=== PATIENT | male | born 1940 | race Caucasian/White ===

== ENCOUNTER 2017-03-27 13:36 | Observation (INO) | payer OTHER ==
--- NOTE | 2017-03-27 14:09 | CPEKG ---
Heart Rate: 68 RR Interval: 882 P-R Interval: 208 QRSD Interval: 74 QT Interval: 392 QTC Interval: 417 P [place]: 18 QRS [place]: -47 T Wave [place]: 84 EKG Severity - ABNORMAL ECG - EKG Impression: SINUS RHYTHM EKG Impression: PROBABLE INFERIOR INFARCT, OLD EKG Impression: CONSIDER ANTERIOR INFARCT EKG Impression: Agree with above Electronically Signed By: Kvng Chisholm 28-Mar-2017 09:56:07
--- NOTE | 2017-03-27 14:11 | EDPHY ---
H & P Stated Complaint: L arm tingling intermittently x 1 wk;has L axillary tingling today Time Seen by Provider: 03/27/17 14:09 HPI/ROS: CHIEF COMPLAINT: Left arm numbness/paresthesias, chest pain. HISTORY OF PRESENT ILLNESS: The patient is a 76-year-old male with a history of CVA who presents with intermittent left arm and hand numbness and paresthesias for the past week, worsening today. He admits an associated left-sided chest pain that he felt this morning during the concurrently with the numbness. He admits associated nausea that has resolved. He admits neck tightness that he says is not unusual for him. He denies alleviating or provoking factors. He denies weakness, right-sided symptoms, facial symptoms, or leg symptoms. No shortness of breath, fever, chills, chest pain, shortness of breath, palpitations, vomiting, diarrhea, urinary complaints, headache, lightheadedness. He is anticoagulated on Coumadin. No recent falls. REVIEW OF SYSTEMS: Aside from elements discussed in the HPI, a comprehensive 10-point review of systems was reviewed and is negative. PAST MEDICAL HISTORY: CVA, hypertension, hypercholesterolemia. SOCIAL HISTORY: , nonsmoker, no alcohol use. VITAL SIGNS: Reviewed by me GENERAL: Well-developed, well-nourished, resting comfortably in no respiratory distress. HEENT: Atraumatic. Eyes: No icterus, no injection. Mouth: moist mucous membranes. No erythema or lesions. Neck: supple with no adenopathy. LUNGS: Clear to auscultation bilaterally, no wheezes, rhonchi or rales. CARDIAC: Regular rate and rhythm, no rubs, murmurs or gallops. No carotid bruits. ABDOMEN: Soft, nontender, nondistended, bowel sounds normal. BACK: No CVA tenderness. EXTREMITIES: No trauma. No edema. Range of motion is normal throughout. No tenderness, swelling, or adenopathy noted in the left axilla. NEURO: Alert and oriented, cranial nerves 2-12 are intact. Motor strength 5/5 in all extremities including the left upper extremity. Sensation is intact to light touch in the left upper extremity. SKIN: Warm and dry, no rash. PSYCHIATRIC: Normal mentation, no agitation. Portions of this note were transcribed by a certified ophthalmic medical technician. I personally performed a history, physical exam, medical decision making, and confirmed accuracy of information the transcribed note. Source: Patient Exam Limitations: No limitations - Personal History Current Tetanus Diphtheria and Acellular Pertussis (TDAP): Yes - Medical/Surgical History Hx Asthma: No Hx Chronic Respiratory Disease: No Hx Diabetes: No Hx Cardiac Disease: No Hx Renal Disease: No Hx Cirrhosis: No Hx Alcoholism: No Hx HIV/AIDS: No Hx Splenectomy or Spleen Trauma: No Other PMH: CVA, HTN, basal cell carcinoma (skin of neck and head) - Social History Smoking Status: Former smoker Constitutional: Initial Vital Signs Temperature (C) 37 C 03/27/17 13:40 Heart Rate 60 03/27/17 13:40 Respiratory Rate 18 03/27/17 13:40 Blood Pressure 134/101 H 03/27/17 13:40 O2 Sat (%) 94 03/27/17 13:40 O2 Delivery Mode Room Air O2 (L/minute) 2 Allergies/Adverse Reactions: No Known Allergies Allergy (Verified 03/27/17 13:41) Home Medications: Medication Instructions Recorded Amoxapine 50 mg PO HS 08/23/14 Irbesartan [Avapro 75 mg (*)] 75 mg PO DAILY 08/23/14 Atorvastatin Calcium [Lipitor 20 20 mg PO HS 03/27/17 mg (*)] Levothyroxine [Synthroid 50 mcg 50 mcg PO DAILY06 03/27/17 (*)] Warfarin Sodium 5 mg PO DAILY@18 03/27/17 Medical Decision Making - Diagnostics EKG Interpretation: 12-LEAD EKG: Please see the full report in [facility]. My interpretation: Normal sinus rhythm, multiple PVCs. No acute ischemic changes. Deep QS intervals inferiorly. Imaging Results: CT head: Impression: 1. Mild atrophy. 2. No acute hemorrhage, hydrocephalus, or mass effect. 3. Cerebrovascular atherosclerosis. 4. No definite acute infarct. 5. Moderate microvascular ischemic gliosis. 6. Old infarct in the right middle cerebellar peduncle/right cerebellar hemisphere region. 7.Consider MRI of the brain without and with contrast enhancement, if there is continued clinical concern. Findings and recommendations discussed with Emergency Department physician, Josefina Alegria MD at 15:26 hour, 03/27/2017. Final report concurs with initial preliminary interpretation. Dictated By: Wolf Choudhary Imaging: Discussed imaging studies w/ harvest worker field crop Radiologist ED Course/Re-evaluation: 76-year-old male with a previous CVA presents with intermittent left arm numbness and an episode of chest pain and nausea this morning. He is neurologically intact on exam. I am concerned for a cardiac process in this patient. I think a neurological process is possible but less likely. An IV was established and labs ordered. EKG ordered. Chest x-ray ordered. 1534: Head CT results conveyed to me negative for intracranial bleed by Dr. Choudhary, radiology. X-ray chest was obtained. I viewed the images myself on the PACS system. My interpretation of the images is: bronchitis/airways disease. The radiologist interpretation is pending at this time. I discussed the x-ray findings with the patient. Long discussion held with the patient and his . We discussed angina, anginal equivalents, possibility that the patient's intermittent tingling may be related to a cardiac issue, possibility of TIA or stroke, and my recommendation for admission to the hospital. Possibility of a vascular etiology was also entertained. Patient and his in agreement. 1627: Consulted with Dr. Pinto, hospitalist. He accepts admission. Dr. Wil Pinto requested a MRI of the brain as well as an MRI of the cervical spine be obtained. These were ordered. Please see the radiology reports for the readings and the findings. Differential Diagnosis: Differential diagnoses for the patient's symptom complex was considered including but not limited to paresthesias, electrolyte abnormalities, radiculopathy, anginal equivalent, stroke, TIA, vasculitis, anxiety.. Consult/Admit Bed Type: Dr. Wil Pinto, U - Data Points Laboratory Results: Laboratory Results 03/27/17 14:20 03/27/17 14:20 Medications Given: Discontinued Medications Atorvastatin Calcium (Lipitor) 20 mg PO HS [facility] Stop: 09/23/17 20:59 Last Admin: 03/27/17 21:07 Dose: 20 mg Irbesartan (Avapro) 75 mg PO DAILY [facility] Stop: 09/24/17 08:59 Last Admin: 03/28/17 12:11 Dose: 75 mg Levothyroxine Sodium (Synthroid) 50 mcg PO DAILY06 J[facility] Stop: 09/24/17 05:59 Last Admin: 03/28/17 06:37 Dose: 50 mcg Miscellaneous Medication (Amoxapine [Amoxapine]) 50 mg PO [facility] Stop: 09/23/17 20:59 Last Admin: 03/27/17 21:07 Dose: Not Given Departure - Departure Disposition: [facility] Acute Clinical Impression: Left arm numbness Chest pain Qualifiers: Chest pain type: unspecified Qualified Code(s): R07.9 - Chest pain, unspecified Condition: Good Report Scribed for: Josefina Alegria Report Scribed by: Anthony Pedraza Date of Report: 03/27/17 Time of Report: 14:19
[2017-03-27 14:25] LABS: % IMMATURE GRANULYOCYTES 0.5 % (0.0-1.1); ABSOLUTE IMMATURE GRANULOCYTES 0.04 10^3/uL (0.00-0.10); ADD DIFF? NO; ADD MORPH? NO; ADD SCAN? NO; ATYPICAL LYMPHOCYTE FLAG 10 (0-99); FRAGMENT RBC FLAG 0 (0-99); HEMATOCRIT 53.8 % (40.0-51.0); HEMOGLOBIN 17.8 g/dL (13.7-17.5); LEFT SHIFT FLG 0 (0-99); LIPEMIA HEMOLYSIS FLAG 80 (0-99); MEAN CELL HEMOGLOBIN 31.2 pg (27.9-34.1); MEAN CELL HEMOGLOBIN CONCENTR. 33.1 g/dL (32.4-36.7); MEAN CELL VOLUME 94.4 fL (81.5-99.8); MEAN PLATELET VOLUME 10.5 fL (8.7-11.7); PLATELET CLUMPS FLAG 0 (0-99); PLATELET COUNT 146 10^3/uL (150-400); RED CELL DISTRIBUTION WIDTH 12.3 % (11.5-15.2)
[2017-03-27 14:33] LABS: ANION GAP 13 mEq/L (8-16); CARBON DIOXIDE 25 mEq/l (22-31); CHLORIDE 105 mEq/L (97-110); CREATININE 1.2 mg/dL (0.7-1.3); GLOMERULAR FILTRATION RATE 59; GLUCOSE 104 mg/dL (70-100); SODIUM 143 mEq/L (134-144)
[2017-03-27 14:42] LABS: INR 3.23 (0.83-1.16); PROTIME(PATIENT) 33.5 SEC (12.0-15.0)
[2017-03-27 14:45] LABS: TROPONIN I < 0.012 ng/mL (0-0.034)
[2017-03-27] MEDS ORDERED: LORazepam 2 MG/ML INJ ONE (16:23)
[2017-03-27] MEDS ORDERED: ONDANSETRON DISINTEGRATING 4 MG TAB PO PRN (18:29)
[2017-03-27] MEDS ORDERED: ACETAMINOPHEN 325 MG TAB PO PRN (18:29)
[2017-03-27] MEDS ORDERED: ONDANSETRON 4 MG/2 ML VIAL IVP PRN (18:29)
[2017-03-27] MEDS ORDERED: GADOBUTROL 10 ML VIAL IVP ONE (18:30)
[2017-03-27] MEDS ORDERED: AMOXAPINE 50 MG PO SCH (21:00)
[2017-03-27] MEDS ORDERED: ATORVASTATIN CALCIUM 20 MG TAB PO SCH (21:00)
--- NOTE | 2017-03-27 23:02 | PDGENHP ---
History and Physical - Chief Complaint acute paresthesias - History of Present Illness primary care provider: Dr. Marquez HPI: 76-year-old male presenting with acute paresthesia characterized as pins and needles tingling, located in his left upper extremity with some associated tightness aching located in his left chest. Onset of symptoms was over the past several weeks and duration has been intermittent. It seems escalated over the past 48 hours. Reports that he is normally very physically active and several days prior to this presentation he engage in a 40 minutes cardiovascular workout in which he experienced none of the aforementioned symptoms. Does not note any particular time of day when the symptoms are more significant and he does not have any particular overhead exercises or movements that seem to exacerbate them. He does note occasional minor posterior neck discomfort which is generally alleviated by stretching. He otherwise takes all of his home medications he reports that prior to his onset of symptoms he had otherwise been feeling well. He denies any chest trauma but does endorse that he does a significant number of overhead weight lifting exercises. History Information - Allergies/Home Medication List Allergies/Adverse Reactions: No Known Allergies Allergy (Verified 03/27/17 13:41) Home Medications: Amoxapine 50 mg PO HS 08/23/14 [Last Taken 03/26/17] Irbesartan [Avapro 75 mg (*)] 75 mg PO DAILY 08/23/14 [Last Taken 03/27/17] Atorvastatin Calcium [Lipitor 20 mg (*)] 20 mg PO HS 03/27/17 [Last Taken ] Levothyroxine [Synthroid 50 mcg (*)] 50 mcg PO DAILY06 03/27/17 [Last Taken ] Warfarin Sodium 5 mg PO DAILY@18 03/27/17 [Last Taken 03/26/17] I have personally reviewed and updated: family history, medical history, social history, surgical history - Past Medical History CVA ( Right cerebellum, no residual deficits), hypertension, hyperlipidemia - Surgical History Reports: no pertinent surgical hx - Family History Additional family history: father with myocardial infarction in his left main coronary artery at age 58 - Social History Smoking Status: Former smoker Alcohol Use: Occasionally Drug Use: None Additional social history: patient is very physically active engages in cardiovascular exercise on a weekly basis Review of Systems ROS: 10pt was reviewed & negative except for what was stated in HPI & below Cardiac: Reports: chest pain Neurological: Reports: paresthesia Physical Exam Temp Pulse Resp BP Pulse Ox 36.7 C 83 16 151/93 H 94 03/27/17 20:27 03/27/17 20:27 03/27/17 20:27 03/27/17 20:27 03/27/17 20:27 O2 (L/minute) 2 Constitutional: no apparent distress, appears nourished, not in pain, No uncomfortable Eyes: PERRL, anicteric sclera, EOMI Ears, Nose, Mouth, Throat: moist mucous membranes, hearing normal, ears appear normal, no oral mucosal ulcers Cardiovascular: systolic murmur ( 2/6 systolic murmur at the sternum and apex), other ( significant ectopy), No tachycardia, No edema Respiratory: no respiratory distress, no rales or rhonchi, clear to auscultation Gastrointestinal: normoactive bowel sounds, soft, non-tender abdomen, no palpable masses Skin: warm, normal color, no rashes or abrasions, no fluctuance, no induration, No mottled Musculoskeletal: other ( no tenderness to palpation over the left pectoralis muscle, full range of motion of the left shoulder without any pain elicited, no tenderness to palpation over the left subacromial clavicular joint) Neurologic: AAOx3, CN II-XII Intact, other ( mild subjective paresthesia radial aspect of the left forearm), No weakness ( motor strength 5/5 bilateral upper extremities) Psychiatric: interacting appropriately, not anxious, not encephalopathic, thought process linear Lab Data & Imaging Review 03/27/17 14:20 03/27/17 14:20 WBC 7.75 10^3/uL (3.80-9.50) 03/27/17 14:20 RBC 5.70 10^6/uL (4.40-6.38) 03/27/17 14:20 Hgb 17.8 g/dL (13.7-17.5) H 03/27/17 14:20 Hct 53.8 % (40.0-51.0) H 03/27/17 14:20 MCV 94.4 fL (81.5-99.8) 03/27/17 14:20 MCH 31.2 pg (27.9-34.1) 03/27/17 14:20 MCHC 33.1 g/dL (32.4-36.7) 03/27/17 14:20 RDW 12.3 % (11.5-15.2) 03/27/17 14:20 Plt Count 146 10^3/uL (150-400) L 03/27/17 14:20 MPV 10.5 fL (8.7-11.7) 03/27/17 14:20 Neut % (Auto) 71.6 % (39.3-74.2) 03/27/17 14:20 Lymph % (Auto) 18.8 % (15.0-45.0) 03/27/17 14:20 [place] % (Auto) 8.4 % (4.5-13.0) 03/27/17 14:20 Eos % (Auto) 0.4 % (0.6-7.6) L 03/27/17 14:20 Baso % (Auto) 0.3 % (0.3-1.7) 03/27/17 14:20 Nucleat RBC Rel Count 0.0 % (0.0-0.2) 03/27/17 14:20 Absolute Neuts (auto) 5.55 10^3/uL (1.70-6.50) 03/27/17 14:20 Absolute Lymphs (auto) 1.46 10^3/uL (1.00-3.00) 03/27/17 14:20 Absolute Monos (auto) 0.65 10^3/uL (0.30-0.80) 03/27/17 14:20 Absolute Eos (auto) 0.03 10^3/uL (0.03-0.40) 03/27/17 14:20 Absolute Basos (auto) 0.02 10^3/uL (0.02-0.10) 03/27/17 14:20 Absolute Nucleated RBC 0.00 10^3/uL (0-0.01) 03/27/17 14:20 Immature Gran % 0.5 % (0.0-1.1) 03/27/17 14:20 Immature Gran # 0.04 10^3/uL (0.00-0.10) 03/27/17 14: PT 33.5 SEC (12.0-15.0) H 03/27/17 14:20 INR 3.23 (0.83-1.16) H 03/27/17 14:20 Sodium 143 mEq/L (134-144) 03/27/17 14:20 Potassium 4.0 mEq/L (3.5-5.2) 03/27/17 14:20 Chloride 105 mEq/L (97-110) 03/27/17 14:20 Carbon Dioxide 25 mEq/l (22-31) 03/27/17 14:20 Anion Gap 13 mEq/L (8-16) 03/27/17 14:20 BUN 16 mg/dL (7-23) 03/27/17 14:20 Creatinine 1.2 mg/dL (0.7-1.3) 03/27/17 14:20 Estimated GFR 59 03/27/17 14:20 Glucose 104 mg/dL (70-100) H 03/27/17 14:20 Calcium 9.0 mg/dL (8.5-10.4) 03/27/17 14:20 Troponin I < 0.012 ng/mL (0-0.034) 03/27/17 22:21 Visualized and Interpreted Chest x-ray results: Yes Chest X-Ray results: other ( mild peribronchial thickening) Visualized and Interpreted EKG results: Yes EKG Interpretation: Positive for: other ( sinus mechanism with significant PVCs and Q-wave inferiorly with poor R-wave progression in leads V2 through V3) Assessment & Plan Assessment: 76-year-old male presents with acute chest pain and left upper extremity paresthesias Plan: 1. Chest pain acute, new problem this provider, further workup indicated. Potential etiologies include musculoskeletal cause with his significant level of physical activity versus unstable angina versus neuropathic pain from his cervical neural foramina stenosis. - given his cardiovascular risk factors, further cardiac risk stratification is indicated - treadmill nuclear tomorrow given his abnormal baseline EKG -monitor on telemetry overnight, cycle cardiac enzymes - hold on aspirin given that he is currently systemically anticoagulated, hold on beta-marylou given that his heart rate is currently 60, hold on sublingual nitroglycerin as he is currently chest pain-free -if cardiac stress test is negative, would discuss muscular etiology with the patient including trial of nonsteroidal anti-inflammatory medications and additional stretching 2. Paresthesias. Acute, new problem this provider, further workup indicated. Potential etiologies include musculoskeletal cause versus neural foraminal stenosis MRI versus anginal symptoms -MRI of the brain demonstrates no additional CVA -MRI of the cervical spine demonstrates some bilateral moderate to severe foraminal stenosis which could account for his symptoms but further cardiovascular workup as outlined above should be performed prior to attributing them to this -trial of gabapentin may be of use if above workup is negative 3. Hypertension. Continue home medications 4. History of CVA. Continue Coumadin, monitor daily INR -reviewed outside records including 08/23/2014 discharge summary by Judith Lind , reporting the patient has experienced bleeding complications in the past including epistaxis requiring rhino rockets, monitor for any signs of bleeding while he is supratherapeutic on his INR Diet. Cardiac, NPO after midnight for stress test Prophylaxis. High risk patient, currently anticoagulated Code. Full Disposition. Anticipated discharge is 03/28/2017, pending further workup as outlined above. I have discussed patient's presentation with Dr. Josefina Alegria, we both agree the patient warrants urgent cardiovascular risk assessment as outlined above.
[2017-03-28 05:14] LABS: INR 3.44 (0.83-1.16); PROTIME(PATIENT) 35.2 SEC (12.0-15.0)
[2017-03-28 05:15] LABS: ANION GAP 10 mEq/L (8-16); CALCIUM 8.9 mg/dL (8.5-10.4); CARBON DIOXIDE 27 mEq/l (22-31); CHLORIDE 106 mEq/L (97-110); CREATININE 1.2 mg/dL (0.7-1.3); GLOMERULAR FILTRATION RATE 59; GLUCOSE 84 mg/dL (70-100); MAGNESIUM 2.4 mg/dL (1.6-2.3); POTASSIUM 4.2 mEq/L (3.5-5.2); SODIUM 143 mEq/L (134-144)
[2017-03-28 05:24] LABS: TROPONIN I < 0.012 ng/mL (0-0.034)
[2017-03-28] MEDS ORDERED: LEVOTHYROXINE 50 MCG TAB PO SCH (06:00)
[2017-03-28 08:27] VITALS: BP 144/88; PULSE 82; RESP 20; TEMP 98.1; O2SAT 92
[2017-03-28] MEDS ORDERED: IRBESARTAN 75 MG TAB PO SCH (09:00)
--- NOTE | 2017-03-28 13:59 | ECHO ---
[id number] + + [address] : : [place] [address] : : [phone] + + Adult Echocardiographic Report + -------+ :Name: PENNY MURRY MStudy Date: 03/28/2017 01:10 PM : : Hospital Admission Number: [id number] Locati on: 219: :: 1940 Gender: Male Height: 70 in : :Age: 76 yrs Race: WH Weight: 185 lb : :Reason For Study: Eval Valves : : BSA: 2.0 meter s2 : :History: Murmur : + -------+ MMode/2D Measurements \T\ Calculations IVSd: 1.0 cm LVIDd: 4.2 cm FS: 39.6 % Ao root diam: 4.1 cm LVPWd: 1.2 cm LVIDs: 2.5 cm EDV(Teich): 78.7 ml ACS: 0.63 cm ESV(Teich): 23.2 ml EF(Teich): 70.5 % LVOT diam: 2.2 cm LVOT area: 3.8 cm2 Normal Measurement Values: + + :LVIDd (3.5-5.7cm) IVSd (0.6-1.1cm) LVPWd (0.6-1.1cm) Aortic Root (2.0-3.7cm)Left Atrium (1.5-4.0cm): :LV Vol(d) (76-115ml) LV Vol(s) (29-48ml) Ejec Fraction (50-65%)PV Kip (0.6- 1.2m/s) TV Kip (0.4-1.0m/s) : :MV E Kip (0.8-1.0m/s)MV A Kip (0.3-1.0m/s)LVOT Kip (0.7-1.2m/s) Asc Ao Kip ( 0.9-1.8m/s) : + + Doppler Measurements \T\ Calculations MV E max kip: Ao V2 max: LV V1 mean PG: SV(LVOT): 65.6 cm/sec 371.0 cm/sec 2.3 mmHg 85.3 ml MV A max kip: Ao max P.1 mmHgLV V1 mean: 111.6 cm/sec Ao mean P.0 cm/sec MV E/A: 0.59 32.6 mmHg LV V1 VTI: 22.2 cm Ao V2 mean: 258.8 cm/sec Ao V2 VTI: 76.6 cm KADEN(I,D): 1.1 cm2 PA V2 max: 120.8 cm/sec PA max P.8 mmHg Left Ventricle The left ventricle is normal in size. There is normal left ventricular wall thickness. The left ventricular ejection fraction is normal. There is Doppler evidence for diastolic dysfunction. Ejection Fraction = 70%. Ectopy noted during exam. The left ventricular wall motion is normal. Right Ventricle The right ventricle is normal in size and function. Atria The left atrial size is normal. Right atrial size is normal. Mitral Valve The mitral valve is normal in structure and function. There is no evidence of mitral valve prolapse. There is no mitral valve stenosis. There is no mitral regurgitation noted. Tricuspid Valve Normal tricuspid valve. No tricuspid regurgitation. Aortic Valve There is moderate to severe aortic valve calcification. A bicuspid aortic valve cannot be excluded. Moderate valvular aortic stenosis. There is no aortic insufficiency. Pulmonic Valve The pulmonic valve is normal in structure and function. Great Vessels Moderately dilated ascending aorta. Ascending aorta is 4.8 cm. Pericardium/Pleural There is a fat pad seen. Conclusion A complete two-dimensional transthoracic echocardiogram was performed (2D, M-mode, Doppler and color flow Doppler). The left ventricular ejection fraction is normal. There is Doppler evidence for diastolic dysfunction. Ejection Fraction = 70%. The left ventricular wall motion is normal. Ectopy noted during exam The mitral valve is normal in structure and function. There is moderate to severe aortic valve calcification. A bicuspid aortic valve cannot be excluded. Moderate valvular aortic stenosis. Moderately dilated ascending aorta. Ascending aorta is 4.8 cm No prior echo Final Reading Physician: Dr Norma Snell electronically signed on 03/28/2017 01:58 PM Ordering Physician: [place] Performed By: Fortino Ramirez, CS
--- NOTE | 2017-03-28 15:06 | HOSPPROG ---
Hospitalist Progress Note Assessment/Plan: 76 yo M with hx of CVA pw LUE paresthesias and chest pain # chest pain: nuc treadmill performed today and notable for frequent PVCs but otherwise negative for ischemia # valvular heart disease: noted to have calcified aortic valve with moderate aortic stenosis as well. Cardiology to evaluate and may want to have IDA and cath prior to dc. They plan to discuss with patient. 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 Patient new to my care. Old records reviewed and summarized as above. Subjective: no significant overnight events, patient notes he is feeling well today Objective: Vital Signs Temp Pulse Resp BP Pulse Ox 36.7 C 82 20 144/88 H 92 03/28/17 08:26 03/28/17 08:26 03/28/17 08:26 03/28/17 08:26 03/28/17 08:26 Laboratory Results 03/28/17 04:17 03/27/17 03/28/17 03/29/17 05:59 05:59 05:59 Intake Total 450 Balance 450 PT 35.2 SEC (12.0-15.0) H 03/28/17 04:17 INR 3.44 (0.83-1.16) H 03/28/17 04:17 awake alert nad anicteric op clear rrr systolic murmur cta b soft nt nd no cce warm dry well perfused oriented appropriate - Time Spent With Patient Time Spent with Patient: greater than 35 minutes Time Spent with Patient: Greater than 35 minutes spent on this patients care, greater than 50% of time spent counseling, educating, and coordinating care regarding the above mentioned plan. ICD10 Worksheet Patient Problems: Problems Problem Status Onset Nosebleed Acute CVA (cerebral infarction) Acute A-fib Acute Chest pain Acute Left arm numbness Acute
--- NOTE | 2017-03-28 15:12 | PDDCSUM ---
Discharge Summary Discharge Summary: Dates of service 03/27-03/28/17 Discharge dx: # chest pain # valvular heart disease/mod # frequent pvcs # paresthesias # htn # h/o cva consultations: cardiology Procedures performed: nuc stress test, echo Hospital course by problem: 76 yo M with hx of CVA pw LUE paresthesias and chest pain # chest pain: nuc treadmill performed today and notable for frequent PVCs but otherwise negative for ischemia # valvular heart disease: noted to have calcified aortic valve with moderate aortic stenosis as well. Plan to f/u as an OP for likely IDA/cath # paresthesias: has had w/u including mri brain/mri c spine with notable moderate to severe bilateral foraminal stenosis at c4-c5 with degenerative disc disease, likely contributing, would have patient f/u with neurosurgery as an OP # htn: continue current medications # h/o cva # dispo: dc home > 35 minutes spent in dc more than half in coordination of care as well as discussion with patient and regarding f/u care plan
[2017-03-28 17:07] LABS: CHOLESTEROL 115 mg/dL (140-220); CHOLESTEROL/HDL RATIO 3.97 RATIO (1.00-4.97); HIGH DENSITY LIPOPROTEIN 29 mg/dL (40-65); LDL/HDL RATIO 1.83 RATIO (1.00-3.64); LOW DENSITY LIPOPROTEIN 53 mg/dL (80-100); NON-HIGH DENSITY LIPOPROTEIN 86 mg/dL (90-129); TRIGLYCERIDE 167 mg/dL (40-150); VERY LOW DENSITY LIPOPROTEINS 33 mg/dL (8-25)
[2017-03-28] MEDS ORDERED: WARFARIN SODIUM 5 MG TAB PO SCH (18:00)
--- NOTE | 2017-03-28 21:41 | CPR ---
[f rep st] NONINVASIVE CARDIAC PROCEDURE REPORT PROCEDURE PERFORMED: Exercise treadmill MPI study. INDICATION FOR STRESS TESTING: Chest pressure, abnormal electrocardiogram. PRE: After obtaining informed consent, the patient was placed on 12-lead electrocardiogram. Initia l EKG shows sinus rhythm, leftward axis, poor R-wave progression in anterior leads. Occasional barber ature atrial contraction, frequent occasional premature ventricular contraction. Initial blood pres sure 130/70. Patient denies any chest pain, shortness of breath, arm pain, or symptoms suggestive o f ischemia. STRESS: The patient was placed on exercise treadmill, following standard [place] protocol with the fo llowing findings: 1. Patient exercised for 6 minutes and 30 seconds. 2. 7.1 METs. 3. He obtained a heart rate of 126 beats per minute, which was 88% of MPHR. 4. Patient had no chest pain or symptoms suggestive of ischemia throughout testing. 5. Patient had no significant ST shifts at peak exercise suggestive of ischemia. 6. During stress testing, patient was noted to have occasional PACs, frequent PVCs with occasional couplets, and one 4-beat run of nonsustained ventricular tachycardia, he was asymptomatic. 7. SpO2 remained greater than 90% throughout testing. 8. BP variation: Rest 130/70, stress 166/70. 9. Test was stopped due to maximum effort. 10. Vences treadmill score of 6, placing patient at low cardiovascular risk. RECOVERY: Patient recovered for 5 minutes, heart rate returned back to normal, patient continues to have occasional PACs and occasional to frequent PVCs, no other malignant arrhythmias or pauses note d throughout recovery. IMPRESSION: A 76-year-old male admitted to the hospital for left upper arm and chest pressure, eval uated for cardiac ischemia. No significant ST shifts at peak exercise suggestive of ischemia, but p atient was noted to have frequent premature ventricular contractions during stress with occasional c ouplets, and one 4-beat run of nonsustained ventricular tachycardia. The patient was asymptomatic. Also noted pre, patient with a 2/6 to 3/6 systolic murmur noted in the right upper chest. Would re commend echocardiogram for further evaluation. The patient's vital signs are stable. He is being t aken down to Nuclear Medicine for post MPI imaging. /[id number]/MODL
--- NOTE | 2017-03-28 22:51 | GCON ---
[f rep st] CONSULTATION CARDIOLOGY CONSULTATION REASON FOR CONSULTATION: Premature ventricular contractions, episodes of chest pressure, moderate a ortic stenosis, and dilated ascending aorta. HISTORY OF PRESENT ILLNESS: The patient is a 76-year-old male, with previous medical history that i ncludes CVA in 1990, hypertension, and hypercholesteremia. He reports yesterday having intermittent left arm and hand numbness, and paresthesias in his left upper extremity with association of tightn ess and aching located in his left chest. He reports this has been going on for multiple weeks. He does report that he has been very active. He works out on a routine basis with exercising on a katerine admill, up to 40 minutes in the last week, with no symptoms. He denies any palpitations, lightheade dness, orthopnea, PND, edema, weight gain, near-syncope, or syncopal events. He denies any new symp toms suggestive of TIA or CVA. He reported last evening, the symptoms had worsened and came to [facility] emergency department for further evaluation. Upon arrival, he did have an electrocardiogram done showing sinus rhythm, with noted Q-waves in the inferior leads, poor R-wave progression, and occasional premature ventricular complexes. He did und ergo a head CT while in the emergency department which showed mild atrophy, but no acute hemorrhage, hydrocephalus or mass effect. It was noted that he did have cerebrovascular arthrosclerosis. He a lso had a brain MRI done yesterday showing old infarction of the right cerebral hemisphere and right side of the lower luh. No acute infarct, hemorrhage, hydrocephalus, mass effect or herniation. C ervical spine MRI was also done showing [id number]-elknkmdz degenerative disk disease with no cord comp ression. His initial troponin was less than 0.012. He had been seen by Dr. Pinto of hospital services, who felt due to his multiple cardiac risk facto rs, that he should be further evaluated. He was sent to the TCU for overnight observation, in which he remained on telemetry. He reported throughout the evening no further episodes of chest pressure , pain or numbness in his left arm. He did undergo ETT and MPI study, in which no ischemic changes were noted with exercise, but was noted to have frequent premature ventricular contractions with exe rtion, and one episode of nonsustained ventricular tachycardia for 4 beats. His nuclear MPI study s howed no signs of ischemia or infarction. It was noted that he had a significant murmur on examinat ion. He did undergo echocardiogram. Echo did show normal LV systolic function with EF estimated at 70%. He was noted to have diastolic dysfunction, but normal wall motion. He was noted to have mod lfueq-ln-aopnhm aortic valve calcification, with possible bicuspid aortic valve. He was also noted to have moderate valvular aortic stenosis and moderately dilated ascending aorta at 4.8 cm. The patient reports he had been in his normal state of health prior to episode of arm numbness, pare sthesias and chest pressure. He denies any recent fevers, chills, or night sweats. The patient has significant cardiac risk factors that include age, known history of peripheral vascular disease (pr evious CVA), hypertension, and hyperlipidemia. He denies any history of diabetes, but does report p ositive family history of coronary artery disease. He reports he was a smoker at a very young age, but quit before he got out of high school. PAST MEDICAL HISTORY: Includes: 1. Previous CVA in 1990. 2. Hypertension. 3. Hyperlipidemia. PAST SURGICAL HISTORY: The patient reports no significant previous surgery. FAMILY HISTORY: The patient reports father with myocardial infarction in his left main coronary art kris at age 58. SOCIAL HISTORY: He is recently retired as a property management bookkeeper. He is . He occasionally uses alcohol. He reports he is a previous smoker, stating that he smoked at an early age, but quit befo re he got out of high school. He exercises on a routine basis. He denies any illicit drug use. ALLERGIES: No known allergies. MEDICATIONS: At home include: 1. Warfarin 5 mg p.o. daily which he has been on since his CVA. 2. Synthroid 50 mcg p.o. daily. 3. Irbesartan 75 mg p.o. daily. 4. Atorvastatin 20 mg p.o. at h.s. 5. Amoxapine 50 mg p.o. at h.s. REVIEW OF SYSTEMS: A 10-point review of systems done, all negative except as mentioned above. PHYSICAL EXAMINATION: GENERAL APPEARANCE: Thin, well-groomed, male. He is alert and olivia ented to person, place, time, and situation. Appears to be under no acute distress. CURRENT VITAL SIGNS: Blood pressure of 144/88, heart rate of 82, respirations of 20, saturating 96% on room air, temperature of 36.7 degrees Celsius. HEENT: Head is normocephalic. Lips and tongue are pink and m oist with no signs of cyanosis. Conjunctivae are pink. NECK: Trachea is midline, +2 carotid pulse s bilaterally. No auscultated bruits. No jugular vein distention. RESPIRATORY: Lungs clear to au scultation. No rhonchi, rales or wheezes. No accessory muscle use. No intercostal muscle retracti on noted. CARDIAC: Regular rate, regular rhythm, S1 and S2, has 2/6 to 3/6 systolic murmur noted a long right upper sternal border. No rubs or S3 noted. ABDOMEN: Soft, nontender, bowel sounds x4 q uadrants. No organomegaly. No palpable masses. SKIN: Herreid, warm, and dry. EXTREMITIES: No cyan osis, no clubbing, no peripheral edema. VASCULAR: +2 carotids bilaterally, +2 radials bilaterally, +1 dorsal pedal and posterior tibial pulses bilaterally. LABORATORY STUDIES: Drawn yesterday in the emergency department showed WBC 7.75, hemoglobin 17.8, h ematocrit 53.8, platelet count 146. INR was noted yesterday to be 3.23. Today's laboratory studies showed INR of 3.44. Sodium 143, potassium 4.2, chloride 106, CO2 27, BUN 17, creatinine 1.2, gluco se 84, calcium 8.9, phosphorus 3.8, magnesium 2.4. The patient has had 3 troponin levels drawn; all have been less than 0.012. IMAGING STUDIES: CT of the head as mentioned above. Brain MRI and cervical spine MRI as mentioned above. Chest x-ray done on admission showing no acute cardiopulmonary process. Carotid Doppler maki dy done this morning showing no hemodynamically significant stenosis on either carotid artery. ETT and MPI study as mentioned above. Echocardiogram done as mentioned above. ASSESSMENT AND PLAN: 1. Chest pain: Patient reports no further episodes of chest pain or pressure. Has had an exercise treadmill testing, showing no acute ST changes at peak exercise. MPI study showing no signs of isc hemia or infarction, normal wall motion, no LV dilation, no ischemic changes. It was noted that he did have frequent premature ventricular contractions with exertion. Negative troponins. With the p atient's multiple cardiac risk factors, episode of chest pressure, and multiple premature ventricula r contractions with under exercise treadmill testing, question of possible MPI study showing there w as a question about potential balanced ischemia off his myocardial perfusion imaging study, this pat ient will follow up with us in our office for further evaluation. 2. Premature ventricular contractions. The patient was noted to have frequent PVCs during stress t esting. His electrolyte were within normal limits. His magnesium was 2.4. He is noted to have hyp othyroidism. I will ask the laboratory to draw a TSH level today to assure that he is not hyperthyr oid. Echocardiogram did show aortic stenosis, with mild LVH, questioning potential cause. We will start him on metoprolol tartrate at 25 mg p.o. b.i.d. 3. Aortic stenosis: The patient was noted to have significant murmur on physical examination. He appears to be euvolemic on physical examination. Echocardiogram showed riadjibu-ao-mrtzjl aortic ca lcification with moderate aortic stenosis, with questioning bicuspid aortic valve. At this time, we will start him on aspirin therapy. We will start him on metoprolol tartrate as mentioned above. W e will plan for him to follow up with us as an outpatient, consideration of potentially having him h ave a IDA done in the next week or two. 4. Dilated ascending aorta. Patient noted with moderately dilated ascending aorta at 4.8 cm. Beta marylou has been started. He is currently on Avapro for hypertension. We will start him also on b eta marylou as mentioned above. Again, he will follow up with us in the office for further evaluati on. 5. Hypertension: The patient's blood pressure noted to be mildly elevated at 144/88. He has been resumed on current dose of Avapro. As mentioned above, we will start him on metoprolol. We will re -evaluate. 6. Hyperlipidemia: Patient with history of hyperlipidemia, currently has been restarted on home do se of atorvastatin. 7. History of cerebrovascular accident: Patient with previous history of CVA. He is on warfarin t herapy. His INR is supratherapeutic at 3.4. He has been asked to hold his dose today, and resume h is home dosage. We will plan on rechecking his INR in the next week. 8. At this time, the patient would like to go home. I have scheduled him to be followed up in our offi ce of next week. We have discussed potential symptoms that he must return to the hospital or seek medical therapy immediately for. He has been told that if he has any problems or concerns p ost discharge, he is to notify our office or return to the hospital. Thank you for this consultation. /[id number]/MODL
--- NOTE | 2017-03-28 23:25 | GCON ---
[f rep st] CONSULTATION NEUROLOGY CONSULT REFERRING PHYSICIAN: Benito Pinto MD CHIEF COMPLAINT: Left arm paresthesias. HISTORY OF PRESENT ILLNESS: The patient is a very pleasant 76-year-old gentleman who states that he has been actually having these symptoms for the last 2-3 weeks. He is describing a dull left neck pain with radiation of numbness into his left arm ongoing for 2-3 weeks with some tightness in his left chest area which initiated his emergency department visit. He has no symptoms in his right arm or either lower extremities or trunk. No bulbar symptoms. No visual changes. These symptoms are subacute and focal sensory symptoms in his left arm associated with neck pain. The patient has had an extensive evaluation since being evaluated in our hospital including a brain MRI yesterday afternoon showing no acute infarct. He has a previous right brain stem infarct. He also has atrophy and microvascular changes. The patient also had a cervical spine MRI showing mild- to-moderate degenerative disk disease, maximal at C4-5, C5-6, and C6-7 with osteophyte complexes, mild canal stenosis, worse at C4-5, and severe bilateral neural foraminal stenosis at all 3 levels. There was no cord compression, edema enhancing lesions, or masses. A carotid Doppler study was performed and pending. His symptoms have improved overnight. He is very active in terms of his exercise, including overhead weightlifting. For past medical history, home medications, allergies, family history, please see Dr. Pinto's admitting physical. REVIEW OF SYSTEMS: A 10-point system was done, only pertinent to the HPI. Billin total minutes floor time reviewing records, imaging and in direct patient contact. PHYSICAL EXAMINATION: VITAL SIGNS: Temperature 36.7, pulse 83, respirations 16 , pulse ox 94%. GENERAL: The patient is very pleasant, no acute distress. HIGHER MENTAL FUNCTION: He is awake and alert, oriented 5/5. No aphasia. Cranial nerve exam was normal 2 through 7, 11, and 12. Motor exam was normal for strength, tone throughout. No focal weakness. Sensory exam normal to light touch throughout currently. He has no subjective or objective findings on sensory exam. Coordination and gait were both normal. IMPRESSION AND PLAN: 1. Left upper extremity paresthesias. 2. Chronic neck pain. 3. Cervical neural foraminal stenosis Overall, the patient's clinical history is suggestive of a cervical radiculopathy in the left upper extremity rather than an acute neurovascular syndrome. Certainly, with his vascular comorbidities and age, completing the TIA workup would be reasonable. He should have a carotid ultrasound, which is pending, echocardiogram, and a 30-day event monitor considered. However, I note he is on warfarin already. Therefore, carotid imaging is the primary test that may have actionable results. He is also having a workup due to the pain or tightness in his left chest in terms of an acute coronary syndrome. I will defer to my colleagues in Hospital Medicine regarding this. If there are no significant vascular abnormalities found, I think he can see Neurosurgery as an outpatient for this probable left cervical radiculopathy. If there are any significant abnormalities on his carotid ultrasound, please call the neurology service. We will continue to follow this patient as needed. Please do not hesitate to call with questions or any changes in this patient's neurologic status. /[id number]/MODL MTDD
== END 2017-03-28 15:57 | disposition home or self-care (01) ==
LOC: F2W 17:40
PROVIDERS: ADMIT Internal Medicine; ATTEND Internal Medicine
DX: R07.89 Other chest pain (principal); I35.0 Nonrheumatic aortic (valve) stenosis; I49.3 Ventricular premature depolarization; I77.810 Thoracic aortic ectasia; M48.02 Spinal stenosis, cervical region; M50.821 Other cervical disc disorders at C4-C5 level; M50.822 Other cervical disc disorders at C5-C6 level; M50.823 Other cervical disc disorders at C6-C7 level; I10 Essential (primary) hypertension; E78.00 Pure hypercholesterolemia, unspecified; Z86.73 Personal history of transient ischemic attack (TIA), and cerebral infarction without residual deficits; Z85.828 Personal history of other malignant neoplasm of skin; Z87.891 Personal history of nicotine dependence; Z82.49 Family history of ischemic heart disease and other diseases of the circulatory system; Z79.01 Long term (current) use of anticoagulants
CPT/HCPCS: 70450; 70551; 71020; 72156; 78452; 93005; 93017; 93306; 93880; 97165; A9500; A9585; G0378; G8987; G8988; G8989; J2060

== ENCOUNTER → 2017-04-23 | Outpatient (CLI) | payer OTHER ==
[~2017-04-23] MED LIST: IOPAMIDOL (ISOVUE 370) 100 ML BTL IV ONE
== END ==
LOC: FIMAGING 12:46
PROVIDERS: ATTEND Nurse Practitioner Family
DX: I71.2 Thoracic aortic aneurysm, without rupture (principal); I35.0 Nonrheumatic aortic (valve) stenosis; Z86.73 Personal history of transient ischemic attack (TIA), and cerebral infarction without residual deficits
CPT/HCPCS: 71275; Q9967

== ENCOUNTER 2017-05-09 11:37 | Day surgery (SDC) | payer OTHER ==
[2017-05-09] MEDS ORDERED: BENZOCAINE UNIT DOSE SPRAY HURRICAINE MM ONE (11:44)
[2017-05-09] MEDS ORDERED: MIDAZOLAM 2 MG/2 ML VIAL IVP ONE (11:44)
[2017-05-09] MEDS ORDERED: ASPIRIN EC 325 MG TAB PO ONE (11:44)
[2017-05-09] MEDS ORDERED: FAMOTIDINE 20 MG TAB PO ONE (11:44)
[2017-05-09] MEDS ORDERED: diphenhydrAMINE 25 MG CAP PO ONE (11:44)
[2017-05-09] MEDS ORDERED: NS 1,000 ML IV ONE ×2 (11:44)
[2017-05-09] MEDS ORDERED: DIAZEPAM 5 MG TAB PO ONE (11:44)
[2017-05-09] MEDS ORDERED: fentaNYL 100 MCG/2 ML INJ IVP ONE (11:44)
--- NOTE | 2017-05-09 12:05 | CPEKG ---
Heart Rate: 62 RR Interval: 968 P-R Interval: 220 QRSD Interval: 78 QT Interval: 400 QTC Interval: 407 P Salem: 24 QRS Salem: -49 T Wave Salem: 61 EKG Severity - ABNORMAL ECG - EKG Impression: SINUS RHYTHM EKG Impression: FIRST DEGREE AV BLOCK EKG Impression: LEFT ANTERIOR FASCICULAR BLOCK Electronically Signed By: Theresa Cunningham 11-May-2017 07:13:58
== END 2017-05-09 12:45 | disposition home or self-care (01) ==
LOC: FCATH 11:37
PROVIDERS: ATTEND Internal Medicine Interventional Cardiology
DX: Z53.8 Procedure and treatment not carried out for other reasons (principal); I35.0 Nonrheumatic aortic (valve) stenosis; I71.4 Abdominal aortic aneurysm, without rupture

== ENCOUNTER 2017-05-16 12:55 | Day surgery (SDC) | payer OTHER ==
[2017-05-16] MEDS ORDERED: NS 1,000 ML IV SCH (13:01)
[2017-05-16] MEDS ORDERED: TEMAZEPAM 15 MG CAP PO PRN (13:01)
[2017-05-16] MEDS ORDERED: MIDAZOLAM 2 MG/2 ML VIAL IVP PRN (13:01)
[2017-05-16] MEDS ORDERED: ASPIRIN EC 325 MG TAB PO ONE ×2 (13:01→13:21)
[2017-05-16] MEDS ORDERED: FAMOTIDINE 20 MG TAB PO ONE (13:01)
[2017-05-16] MEDS ORDERED: ACETAMINOPHEN 325 MG TAB PO PRN (13:01)
[2017-05-16] MEDS ORDERED: fentaNYL 100 MCG/2 ML INJ IVP PRN (13:01)
[2017-05-16] MEDS ORDERED: NITROGLYCERIN 0.4 MG BTL SL PRN (13:01)
[2017-05-16] MEDS ORDERED: diphenhydrAMINE 25 MG CAP PO ONE ×2 (13:01→13:20)
[2017-05-16] MEDS ORDERED: DIAZEPAM 5 MG TAB PO ONE (13:01)
--- NOTE | 2017-05-16 13:18 | CPEKG ---
Heart Rate: 60 RR Interval: 1000 P-R Interval: 229 QRSD Interval: 80 QT Interval: 436 QTC Interval: 436 P [place]: 25 QRS [place]: -48 T Wave [place]: 50 EKG Severity - ABNORMAL ECG - EKG Impression: SINUS RHYTHM EKG Impression: FIRST DEGREE AV BLOCK EKG Impression: LAD, CONSIDER LAFB OR INFERIOR INFARCT EKG Impression: CONSIDER ANTERIOR INFARCT Electronically Signed By: Chiki Davis 16-May-2017 15:53:18
[2017-05-16] MEDS ORDERED: DIAZEPAM 5 MG TAB ONE (13:21)
[2017-05-16] MEDS ORDERED: FAMOTIDINE 20 MG TAB ONE (13:21)
[2017-05-16 13:32] LABS: % IMMATURE GRANULYOCYTES 0.3 % (0.0-1.1); ABSOLUTE IMMATURE GRANULOCYTES 0.02 10^3/uL (0.00-0.10); ADD DIFF? NO; ADD MORPH? NO; ADD SCAN? NO; ATYPICAL LYMPHOCYTE FLAG 0 (0-99); FRAGMENT RBC FLAG 0 (0-99); HEMATOCRIT 50.9 % (40.0-51.0); HEMOGLOBIN 16.8 g/dL (13.7-17.5); LEFT SHIFT FLG 0 (0-99); LIPEMIA HEMOLYSIS FLAG 80 (0-99); MEAN CELL HEMOGLOBIN 31.4 pg (27.9-34.1); MEAN CELL VOLUME 95.1 fL (81.5-99.8); MEAN PLATELET VOLUME 10.7 fL (8.7-11.7); PLATELET CLUMPS FLAG 0 (0-99); PLATELET COUNT 161 10^3/uL (150-400); RED BLOOD CELL COUNT 5.35 10^6/uL (4.40-6.38); RED CELL DISTRIBUTION WIDTH 12.7 % (11.5-15.2)
[2017-05-16 13:41] LABS: INR 1.2 (0.83-1.16); PROTIME(PATIENT) 15.2 SEC (12.0-15.0)
[2017-05-16 13:42] LABS: APTT 33.1 SEC (23.0-38.0)
[2017-05-16 13:54] LABS: ALANINE AMINOTRANSFERASE 37 IU/L (21-72); ALBUMIN 4.1 g/dL (3.5-5.0); ALKALINE PHOSPHATASE 80 IU/L (38-126); ANION GAP 10 mEq/L (8-16); ASPARTATE AMINOTRANSFERASE 25 IU/L (17-59); BILIRUBIN,TOTAL 1.4 mg/dL (0.1-1.4); CALCIUM 9.3 mg/dL (8.5-10.4); CARBON DIOXIDE 27 mEq/l (22-31); CHLORIDE 102 mEq/L (97-110); CHOLESTEROL 107 mg/dL (140-220); CHOLESTEROL/HDL RATIO 2.89 RATIO (1.00-4.97); CREATININE 1.2 mg/dL (0.7-1.3); GLOMERULAR FILTRATION RATE 59; GLUCOSE 89 mg/dL (70-100); HIGH DENSITY LIPOPROTEIN 37 mg/dL (40-65); LDL/HDL RATIO 1.51 RATIO (1.00-3.64); LOW DENSITY LIPOPROTEIN 56 mg/dL (80-100); MAGNESIUM 2.4 mg/dL (1.6-2.3); NON-HIGH DENSITY LIPOPROTEIN 70 mg/dL (90-129); POTASSIUM 4.4 mEq/L (3.5-5.2); SODIUM 139 mEq/L (134-144); TOTAL PROTEIN 6.9 g/dL (6.3-8.2); TRIGLYCERIDE 74 mg/dL (40-150); VERY LOW DENSITY LIPOPROTEINS 14 mg/dL (8-25)
[2017-05-16] MEDS ORDERED: MIDAZOLAM 2 MG/2 ML VIAL ONE ×3 (14:03→14:33)
[2017-05-16] MEDS ORDERED: fentaNYL 100 MCG/2 ML INJ ONE ×2 (14:04→14:32)
[2017-05-16] MEDS ORDERED: LIDOCAINE 1% 300 MG/30 ML SDV ONE (14:32)
[2017-05-16] MEDS ORDERED: IOPAMIDOL (ISOVUE-370) 150 ML BTL IV ONE (14:33)
--- NOTE | 2017-05-16 14:42 | PDPROPOC ---
Sedation Plan of Care Sedation Plan of Care: vital signs stable, mental status noted, patient educated of risks, benefits, alternatives, patient can tolerate sedation ASA Classification: ASA 2 Planned drugs: versed and fentanyl Mallampati Score: Class 2 332 Rule: 332
--- NOTE | 2017-05-16 14:45 | PDGENHP ---
History & Physical Chief Complaint: Valvukar heart disease. History of Present Illness: The patient is a 76-year-old male who had a TIA type episode in March. During his hospitalization for that episode, an echocardiogram was performed that demonstrated moderate to severe aortic stenosis. A nuclear stress test was negative for evidence of ischemia. He also has a dilated ascending aorta at 4.8 cm. Cardiac catheterization has been recommended as as part of his assessment for potential surgical correction of his valvular issue and dilated aorta. Pertinent Past, Social, Family History: The patient is . He is a nonsmoker. Alcohol consumption is not excessive. Family history is noncontributory. Relevant Physical Exam: No jugular venous distention. Lung mays clear to auscultation. Regular rate and rhythm with a 2-3/6 systolic ejection murmur. Abdomen soft, nontender, nondistended with normal bowel sounds. Extremities with 2+ pulses and no peripheral edema.
[2017-05-16] MEDS ORDERED: ATROPINE SULFATE 1 MG/10 ML SYR IVP PRN (16:39)
[2017-05-16] MEDS ORDERED: HYDROCODONE/APAP 5/325 TAB PO PRN (16:39)
[2017-05-16] MEDS ORDERED: ONDANSETRON 4 MG/2 ML VIAL IVP PRN (16:39)
--- NOTE | 2017-05-16 16:45 | PDDXCAT ---
Diagnostic Cath Note - . Date: 05/16/17 Catalogue Librarian: Henry Indication: other (Aortic valve stenosis) - Materials Left Heart Cath size: 6F Left Heart Cath materials: JL5.0, JR4.0, pigtail Right Heart Cath size: 7F Right Heart Cath materials: PWP catheter - Findings-Left Heart Catheterization LM: Normal. LAD: Mild to moderate irregularities less than 50%. LCX: Mild irregularites in the proximal circumflex and large multi-branched principal obtuse marginal. Proximal high stenosis in the AV groove continuation of the circumflex just beyond the OM branch. RCA: Proximal 100% with [id number] collaterals. LVEF: Attempts to cross the aortic valve were unsuccessful. - Findings-Right Heart Catheterization RA: 8 mmHg RV: 32/10 mmHg PA: 32/10/20 mmHg O2 sat 76.2% PAOP: 12 mmHg AO: 138/76/100 mmHg O2 sat 94.4% CO: 6.11 L/min CI: 3.01 L/min/sq mtr Complications: None Estimated blood loss: <50ml Closure method: Angioseal Assessment: 1) Moderate to severe aortic stenosis by echo. 2) CAD as described above. 3) Normal right heart pressures. Patient Problems: Problems Problem Status Onset A-fib Acute CVA (cerebral infarction) Acute Chest pain Acute Left arm numbness Acute Nosebleed Acute
== END 2017-05-16 19:42 | disposition home or self-care (01) ==
LOC: FCATH 12:55
PROVIDERS: ATTEND Internal Medicine Interventional Cardiology
DX: I35.0 Nonrheumatic aortic (valve) stenosis (principal); I77.810 Thoracic aortic ectasia; I25.10 Atherosclerotic heart disease of native coronary artery without angina pectoris; I44.0 Atrioventricular block, first degree; Z86.73 Personal history of transient ischemic attack (TIA), and cerebral infarction without residual deficits
CPT/HCPCS: 93005; 93312; 93456; C1769; C1760; J1644; J2250; J3010; Q9967

== ENCOUNTER → 2018-06-09 | Outpatient (CLI) | payer OTHER | LOC: FIMAGING 13:37 | PROVIDERS: ATTEND Nurse Practitioner Family | DX: I71.2 Thoracic aortic aneurysm, without rupture (principal); I51.7 Cardiomegaly; R91.1 Solitary pulmonary nodule; Q23.1 Congenital insufficiency of aortic valve | CPT/HCPCS: 71275; Q9967; 82565-PO ==

== ENCOUNTER → 2018-06-23 | Outpatient (CLI) | payer OTHER | LOC: BHLMT 14:45 | PROVIDERS: ATTEND Internal Medicine Cardiovascular Disease | DX: I35.9 Nonrheumatic aortic valve disorder, unspecified (principal); I25.10 Atherosclerotic heart disease of native coronary artery without angina pectoris; I71.9 Aortic aneurysm of unspecified site, without rupture | CPT/HCPCS: 93306-PO ==

== ENCOUNTER → 2018-06-29 | Outpatient (CLI) | payer OTHER | LOC: BHLMT 14:00 | PROVIDERS: ATTEND Nurse Practitioner Family | DX: I35.0 Nonrheumatic aortic (valve) stenosis (principal); I71.9 Aortic aneurysm of unspecified site, without rupture; I25.10 Atherosclerotic heart disease of native coronary artery without angina pectoris; Q23.1 Congenital insufficiency of aortic valve | CPT/HCPCS: 93005-PO ==

== ENCOUNTER 2018-10-22 09:32 | Inpatient (IN) | payer OTHER | END 2018-10-29 11:33 | disposition home or self-care (01) | LOC: FCATH 09:32 → F2N 10-23 07:58 → F2W 10:58 → F2N 10-23 11:13 ==

== ENCOUNTER → 2018-11-09 | Outpatient (CLI) | payer OTHER | LOC: FIMAGING 14:33 | PROVIDERS: ATTEND Thoracic Surgery (Cardiothoracic Vascular Surgery) | DX: Z09 Encounter for follow-up examination after completed treatment for conditions other than malignant neoplasm (principal); Z95.2 Presence of prosthetic heart valve ==

== ENCOUNTER 2018-11-26 14:14 | Inpatient (IN) | payer OTHER | END 2018-11-27 13:55 | disposition home or self-care (01) | LOC: F2W 23:00 ==